=== PATIENT | female | born 1985 ===

== ENCOUNTER 2020-01-22 12:13 | Emergency (ER) | payer OTHER ==
--- NOTE | 2020-01-22 12:35 | EDM.PDOC ---
ED HPI GENERAL MEDICAL PROBLEM - General Chief Complaint: Genitourinary Problem Stated Complaint: POSSIBLE UTI Time Seen by Provider: 01/22/20 12:14 Source of Information: Reports: Patient History Limitations: Reports: No Limitations - History of Present Illness INITIAL COMMENTS - FREE TEXT/NARRATIVE: HISTORY AND PHYSICAL: History of present illness: Patient is a 34-year-old female who presents to the emergency room with complaints of vaginal itching, dysuria and frequency x3 days. She denies any vaginal discharge or malodor. She has no concerns of STDs or . States she has had UTIs in the past and this feels very similar. Patient denies any fever, chills, headache, change in vision, syncope or near syncope. Denies any chest pain, back pain, shortness of breath or cough. Denies any abdominal pain, nausea, vomiting, diarrhea, constipation or dysuria. Has not noted any blood in urine or stool. Patient has been eating and drinking appropriately. Review of systems: As per history of present illness and below otherwise all systems reviewed and negative. Past medical history: As per history of present illness and as reviewed below otherwise noncontributory. Surgical history: As per history of present illness and as reviewed below otherwise noncontributory. Social history: See social history for further information Family history: As per history of present illness and as reviewed below otherwise noncontributory. Physical exam: General: Well-developed and well-nourished 34-year-old female. Alert and oriented. Nontoxic-appearing and in no acute distress. HEENT: Atraumatic, normocephalic, pupils equal and reactive bilaterally, negative for conjunctival pallor or scleral icterus, mucous membranes moist, trachea midline. No drooling or trismus noted. No meningeal signs. No hot potato voice noted. Lungs: Clear to auscultation, breath sounds equal bilaterally, chest nontender. Heart: S1S2, regular rate and rhythm without overt murmur Abdomen: Soft, nondistended, nontender. Negative for masses or costovertebral tenderness. Skin: Intact, warm, dry. No lesions or rashes noted. Extremities: Atraumatic, moves all extremities per self without difficulty or deficits. Neurovascular unremarkable. Neuro: Awake, alert, oriented. Cranial nerves II through XII unremarkable. Cerebellum unremarkable. Motor and sensory unremarkable throughout. Exam nonfocal. Notes: Patient declines wanting any STD testing. States she does not have any vaginal discharge or odor. Patient does have UTI treat with Pyridium and Cipro. Encouraged her to follow-up with her CAPTAIN'S ASSISTANT if she continues to have the vaginal itching as she did not want screening for STD or pelvic exam. Supportive care measures were reviewed and discussed. Voices understanding and is agreeable to plan of care. Denies any further questions or concerns at this time. Diagnostics: UA, hCG U Therapeutics: None Prescription: Cipro, Pyridium Impression: UTI Plan: 1. Increase your oral fluids. Take the medications as directed. 2. You can take Tylenol and/or Ibuprofen as needed and as directed. May use over the counter Monostat if you continue to have itching. 3. Follow up with your primary care provider. Return to the ED as needed and as discussed. Definitive disposition and diagnosis as appropriate pending reevaluation and review of above. - Related Data Allergies Allergy/AdvReac Type Severity Reaction Status Date / Time contrast dye Allergy Hives Uncoded 01/22/20 12:22 Home Meds: Home Meds Ciprofloxacin HCl [Cipro] 500 mg PO BID 5 Days #10 tablet 01/22/20 [Rx] Phenazopyridine [Pyridium] 100 mg PO TID PRN 2 Days #6 tab 01/22/20 [Rx] Past Medical History HEENT History: Reports: None Genitourinary History: Reports: Renal Calculus, UTI, Recurrent CAPTAIN'S ASSISTANT History: Reports: Other (See Below) Other CAPTAIN'S ASSISTANT History: ruptured ovarian cyst - Infectious Disease History Infectious Disease History: Reports: Chicken Pox - Past Surgical History HEENT Surgical History: Reports: Oral Surgery, Visual Other HEENT Surgeries/Procedures: Visual Correction Surgery, [place] teeth extraction. Female Surgical History: Reports: None Social & Family History - Family History Family Medical History: Noncontributory - Tobacco Use Smoking Status *Q: Never Smoker - Caffeine Use Caffeine Use: Reports: Coffee - Recreational Drug Use Recreational Drug Use: No ED ROS GENERAL - Review of Systems Review Of Systems: Comprehensive ROS is negative, except as noted in HPI. ED EXAM, RENAL/ - Physical Exam Exam: See Below (See dictation) Course - Vital Signs Last Recorded V/S: Last Vital Signs Temp 97.0 F 01/22/20 12:22 Pulse 71 01/22/20 12:22 Resp 17 01/22/20 12:22 BP 119/57 L 01/22/20 12:22 Pulse Ox 99 01/22/20 12:22 - Orders/Labs/Meds Orders: Active Orders 24 hr Category Date Time Status CULTURE URINE [RM] Stat Lab 01/22/20 12:32 Received Labs: Laboratory Tests 01/22/20 01/22/20 Range/Units 12:32 12:32 Urine Color PINK Urine Appearance CLEAR Urine pH 6.0 (5.0-8.0) Ur Specific Helen <= 1.005 (1.001-1.035) Urine Protein NEGATIVE (NEGATIVE) mg/dL Urine Glucose (UA) NEGATIVE (NEGATIVE) mg/dL Urine Ketones NEGATIVE (NEGATIVE) mg/dL Urine Occult Blood LARGE H (NEGATIVE) Urine Nitrite NEGATIVE (NEGATIVE) Urine Bilirubin NEGATIVE (NEGATIVE) Urine Urobilinogen 0.2 (<2.0) EU/dL Ur Leukocyte Esterase SMALL H (NEGATIVE) Urine RBC 0-2 (0-2/HPF) Urine WBC 5-10 (0-5/HPF) Ur Squamous Epith Cells RARE Urine Bacteria FEW (NEGATIVE) Urine Mucus OCCASIONAL (NONE-MOD) Urine HCG, Qual NEGATIVE (NEGATIVE) Departure - Departure Time of Disposition: 12:55 Disposition: Home, Self-Care 01 Clinical Impression: UTI, Urinary tract infectious disease - Discharge Information Prescriptions: Ciprofloxacin HCl [Cipro] 500 mg PO BID 5 Days #10 tablet Phenazopyridine [Pyridium] 100 mg PO TID PRN 2 Days #6 tab PRN Reason: Dysuria Instructions: Urinary Tract Infection, Adult, [id number] Referrals: PCP,None [Primary Care Provider] - Forms: ED Department Discharge Additional Instructions: The following information is given to patients seen in the emergency department who are being discharged to home. This information is to outline your options for follow-up care. We provide all patients seen in our emergency department with a follow-up referral. The need for follow-up, as well as the timing and circumstances, are variable depending upon the specifics of your emergency department visit. If you don't have a primary care physician on staff, we will provide you with a referral. We always advise you to contact your personal physician following an emergency department visit to inform them of the circumstance of the visit and for follow-up with them and/or the need for any referrals to a consulting specialist. The emergency department will also refer you to a specialist when appropriate. This referral assures that you have the opportunity for follow-up care with a specialist. All of these measure are taken in an effort to provide you with optimal care, which includes your follow-up. Under all circumstances we always encourage you to contact your private physician who remains a resource for coordinating your care. When calling for follow-up care, please make the office aware that this follow-up is from your recent emergency room visit. If for any reason you are refused follow-up, please contact the [facility] Emergency Department at and asked to speak to the emergency department charge nurse. [facility] [address] [place] [id number] [id number] 1. Increase your oral fluids. Take the medications as directed. 2. You can take Tylenol and/or Ibuprofen as needed and as directed. May use over the counter Monostat if you continue to have itching. 3. Follow up with your primary care provider. Return to the ED as needed and as discussed. Sepsis Event Note - Evaluation Sepsis Screening Result: No Definite Risk - Focused Exam Vital Signs: Vital Signs Temp Pulse Resp BP Pulse Ox 01/22/20 12:22 97.0 F 71 17 119/57 L 99 Date Exam was Performed: 01/22/20 Time Exam was Performed: 12:54 - My Orders Last 24 Hours: My Active Orders 01/22/20 12:32 CULTURE URINE [RM] Stat - Assessment/Plan Last 24 Hours: My Active Orders 01/22/20 12:32 CULTURE URINE [RM] Stat
== END 2020-01-22 13:04 | disposition home or self-care (01) ==
LOC: MW.ED 12:13
DX: N39.0 Urinary tract infection, site not specified (principal); Z91.041 Radiographic dye allergy status
CPT/HCPCS: 81001; 81025; 87086; 99283